=== PATIENT | female | born 1990 | race Caucasian/White ===

== ENCOUNTER 2022-09-07 10:37 | Outpatient (CLI) | payer SELFPAY | END 2022-09-07 10:38 | disposition home or self-care (01) | LOC: AMB 09-16 11:55 | PROVIDERS: Visit Provider Emergency Medicine | DX: S39.92XA Unspecified injury of lower back, initial encounter (principal); V49.9XXA Car occupant (driver) (passenger) injured in unspecified traffic accident, initial encounter; Y92.410 Unspecified street and highway as the place of occurrence of the external cause | CPT/HCPCS: A0425; A0427 ==